=== PATIENT | male | born 1935 | race Caucasian/White ===

== ENCOUNTER 2020-12-28 12:41 | Emergency (ER) | payer OTHER, SELFPAY ==
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
[2020-12-28 13:08] VITALS: BP 150/82; BP 160/100; PULSE 80; PULSE 92; RESP 18; TEMP 36.5; O2SAT 94; BMI 25.4
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
[2020-12-28] MEDS: oxyCODONE HCl Immed Release 5 MG TABLET PO (14:27)
[2020-12-28 17:53] LABS: MANUAL DIFF FLAG NO
[2020-12-28 17:59] LABS: Basophils Percent Auto 0.2 % (0-2); Eosinophils Absolute Auto 0.1 X10*3/uL (0.0-0.4); Eosinophils Percent Auto 0.4 % (0-4); Hematocrit 40.6 % (42-52); Hemoglobin 13.6 g/dl (14.0-18.0); Imm Gran Abs Auto 0.04 X10*3/uL (0.00-0.03); Imm Gran Pct Auto 0.3 % (0.0-0.4); Mean Corpuscular HGB Conc 33.5 g/dl (31.0-36.0); Mean Corpuscular Hemoglobin 30.8 pg (27.0-33.0); Mean Corpuscular Volume 91.9 fL (80-98); Mean Platelet Volume 10.4 fL (9.4-12.4); Monocytes Absolute Auto 0.9 X10*3/uL (0.1-1.2); Monocytes Percent Auto 6.3 % (2-11); Neutrophils Absolute Auto 12.3 X10*3/uL (2.0-8.3); Neutrophils Percent Auto 85.8 % (45-73); Platelet Count 185 X10*3/uL (160-400); Red Blood Count 4.42 X10*6/uL (4.60-5.80); Red Cell Distribution Width 12.4 % (11.0-16.0); White Blood Count 14.4 X10*3/uL (4.8-10.8)
--- NOTE | 2020-12-28 18:03 | PC.NURSE ---
ARETHA GRANDDAUGHTER [phone]
[2020-12-28 18:16] VITALS: BP 121/81; PULSE 90; RESP 18; TEMP 36.1; O2SAT 92
[2020-12-28 18:18] LABS: Alanine Aminotransferase 46 U/L (0-40); Albumin Level 4.5 g/dL (3.5-5.0); Alkaline Phosphatase 73 U/L (39-117); Anion Gap 10 (12-20); Aspartate Amino Transferase 36 U/L (5-37); Bilirubin Total 0.4 mg/dL (0.0-1.0); Blood Urea Nitrogen 22 mg/dL (9-16); Calcium 9.5 mg/dL (8.4-10.2); Carbon Dioxide 26 mmol/L (22-29); Chloride 107 mmol/L (96-108); Creatinine Clr Calc Pharmacy 70.1; Estimated Glomerular Filt Rate > 60; Glucose Random 129 mg/dL (60-115); Potassium 4.4 mmol/L (3.3-5.1); Sodium 139 mmol/L (135-145); Total Protein 7.2 g/dL (6.5-8.0)
[2020-12-28] MEDS: Ketorolac Tromethamine 15 MG/ML VIAL 30 MG IM (18:53)
[2020-12-28 19:21] VITALS: BP 134/68; PULSE 78; RESP 16; O2SAT 92
--- NOTE | 2020-12-28 20:35 | PC.NURSE ---
RT CONTACTED FOR INSTRUCTION ON INCENTIVE SPIROMETER.
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
== END 2020-12-28 21:01 | disposition home or self-care (01) ==
PROVIDERS: Physician Assistant; Emergency Provider Emergency Medicine
DX: S43.102A Unspecified dislocation of left acromioclavicular joint, initial encounter (principal); S22.32XA Fracture of one rib, left side, initial encounter for closed fracture; S39.012A Strain of muscle, fascia and tendon of lower back, initial encounter; S40.212A Abrasion of left shoulder, initial encounter; M25.512 Pain in left shoulder; V43.52XA Car driver injured in collision with other type car in traffic accident, initial encounter; Y93.9 Activity, unspecified; Y92.410 Unspecified street and highway as the place of occurrence of the external cause; Y99.9 Unspecified external cause status; Z79.899 Other long term (current) drug therapy
CPT/HCPCS: 36415; 73030; 73200; 80053; 85025; 96372; 99284; J1885